=== PATIENT | female | born 1985 | race Caucasian/White ===

== ENCOUNTER 2016-11-08 14:22 | Emergency (ER) | payer SELFPAY ==
[2016-11-08] MEDS ORDERED: Clindamycin 150 MG CAP ONE (14:57)
[2016-11-08] MEDS ORDERED: Ketorolac Tromethamine 60 MG/2 ML VIAL ONE (14:57)
[2016-11-08] MEDS ORDERED: Lidocaine Viscous Sol 2% 15 ml UD Cup ONE (14:57)
[2016-11-08] MEDS ORDERED: HYDROcodone/Acetaminophen 5/325 mg Tablet ONE (14:57)
== END 2016-11-08 15:55 | disposition home or self-care (01) ==
LOC: MADERS 14:22
DX: S02.5XXA Fracture of tooth (traumatic), initial encounter for closed fracture (principal); K12.2 Cellulitis and abscess of mouth; X58.XXXA Exposure to other specified factors, initial encounter
CPT/HCPCS: 96372; J1885